=== PATIENT | male | born 2005 | race Caucasian/White ===

== ENCOUNTER → 2023-09-23 12:48 | Outpatient (REF) | payer BC, SELFPAY | LOC: HWRAD 12:48 | PROVIDERS: ATTENDING PHYSICIAN Family Medicine | DX: M25.469 Effusion, unspecified knee (principal) | CPT/HCPCS: 73564 ==

== ENCOUNTER → 2024-05-03 07:38 | Outpatient (REF) | payer BC, SELFPAY | LOC: HWRAD 07:38 | PROVIDERS: ATTENDING PHYSICIAN Internal Medicine; FAMILY PHYSICIAN Family Medicine | DX: J32.9 Chronic sinusitis, unspecified (principal); J30.0 Vasomotor rhinitis | CPT/HCPCS: 70486 ==